=== PATIENT | male | born 1950 | race Caucasian/White ===

== ENCOUNTER 2023-04-09 11:22 | Emergency (ER) | payer OTHER ==
[~2023-04-09] VITALS: Ht 182.9 cm; Wt 103.0 kg
[2023-04-09] MEDS ORDERED: CEPHALEXIN500 MG PO (12:16)
[2023-04-09 12:28] VITALS: O2SAT 96
[2023-04-09] MEDS ORDERED: ELIQUIS5 MG PO (18:24)
[2023-04-09] MEDS ORDERED: FLOMAX0.4 MG PO (18:25)
[2023-04-09] MEDS ORDERED: IRBESARTAN150 MG PO (18:25)
[2023-04-09] MEDS ORDERED: AMLODIPINE BESYL5 MG PO (18:25)
[2023-04-09] MEDS ORDERED: METFORMIN HCL500 MG PO (18:25)
[2023-04-09] MEDS ORDERED: ATORVASTATIN CA20 MG PO (18:25)
== END 2023-04-09 12:28 | disposition home or self-care (01) ==
LOC: FSED 11:34
DX: S61.011A Laceration without foreign body of right thumb without damage to nail, initial encounter (principal); W26.0XXA Contact with knife, initial encounter; Y92.89 Other specified places as the place of occurrence of the external cause; I10 Essential (primary) hypertension; E11.9 Type 2 diabetes mellitus without complications; E78.5 Hyperlipidemia, unspecified; I48.91 Unspecified atrial fibrillation
CPT/HCPCS: 99283

== ENCOUNTER 2024-07-22 19:07 | Emergency (ER) | payer MEDICARE, OTHER ==
[~2024-07-22] VITALS: Ht 182.9 cm; Wt 99.8 kg
[~2024-07-22 19:07] MED LIST: AMLODIPINE BESYL5 MG PO; ATORVASTATIN CA20 MG PO; CEPHALEXIN500 MG PO; ELIQUIS5 MG PO; FLOMAX0.4 MG PO; IRBESARTAN150 MG PO; METFORMIN HCL500 MG PO
[2024-07-22 19:09] VITALS: PULSE 70; RESP 18; TEMP 98.9
[2024-07-22 20:19] VITALS: BP 141/73; PULSE 70; RESP 18; TEMP 98.9; O2SAT 97
== END 2024-07-22 20:10 | disposition home or self-care (01) ==
LOC: FSED 19:14
DX: R53.81 Other malaise (principal); R53.83 Other fatigue; I10 Essential (primary) hypertension; E11.65 Type 2 diabetes mellitus with hyperglycemia; I48.91 Unspecified atrial fibrillation; G20.A1 Parkinson's disease without dyskinesia, without mention of fluctuations
CPT/HCPCS: 71045; 80053; 81003; 82553; 84484; 85025; 93005; 99284